=== PATIENT | male | born 1955 | race Caucasian/White ===

== ENCOUNTER 2016-10-19 01:27 | Observation (INO) | payer MEDICAID ==
[~2016-10-19] VITALS: Ht 182.9 cm; Wt 112.5 kg
[2016-10-19 03:31] LABS: BASOPHILS 0.6 % (0.0-2.0); EOSINOPHILS 2.2 % (0-7); HEMATOCRIT 44.5 % (42.0-54.0); HEMOGLOBIN 15.6 g/dL (13.5-17.5); IMMATURE GRANULOCYTES 0.5 % (0-5); LYMPHOCYTES 18.9 % (15-50); MCH 30.1 pg (26.0-34.0); MCHC 35.1 g/dL (31.0-37.0); MCV 85.7 fL (80.0-100.0); MEAN PLATELET VOLUME 11.6 fL (7.4-10.4); MONOCYTES 5.5 % (2-11); NEUTROPHILS 72.3 % (40-80); PLATELET COUNT 160 10x3/uL (130-400); RBC 5.19 10x6/uL (4.20-6.10); RDW 13.7 % (11.5-14.5); WBC 10.9 10x3/uL (4.8-10.8)
[2016-10-19 03:42] LABS: CALC OSMOLALITY 289 mosm/kg (275-300); CALCIUM 8.9 mg/dL (8.5-10.1); CARBON DIOXIDE 28.6 mmol/L (21.0-32.0); CHLORIDE - SERUM 106 mmol/L (98-107); CREATININE - SERUM 0.6 mg/dL (0.6-1.3); GLUCOSE 145 mg/dL (74-106); POTASSIUM - SERUM 3.5 mmol/L (3.5-5.1); SODIUM 144 mmol/L (136-145); UREA NITROGEN 12 mg/dL (7-18); eGFR NON AFRICAN AMERICAN > 90 mL/min (90-120)
[2016-10-19 05:09] VITALS: BP 147/82; BMI 33.7
--- NOTE | 2016-10-19 05:23 | NUR ---
RECIEVED PT FROM ER VIA WHEELCHAIR, ACCOMPANIED BY FAMILY, ASSESSMENT COMPLETED, NO ACUTE DISTRESS NOTED, OXYGEN PLACED PER ORDERS @ 2L, HISTORY AND MED REC DONE, ORIENTED TO ROOM AND CALL LIGHT, DENIES NEEDS AT THIS TIME, CL IN REACH, WILL MONITOR
[2016-10-19] MEDS ORDERED: TENORMIN25 MG PO (05:42)
[2016-10-19] MEDS ORDERED: ZESTRIL40 MG PO (05:45)
[2016-10-19] MEDS ORDERED: PROVENTIL HFA6.7 GM INH (05:45)
[2016-10-19] MEDS ORDERED: INSPIRATION ELI1 PK1 INH (05:46)
[2016-10-19] MEDS ORDERED: HYDROCODONE-APA1 TAB PO (05:47)
[2016-10-19] MEDS ORDERED: LANTUS INSULIN10 ML SC (05:47)
[2016-10-19] MEDS ORDERED: HUMULIN R100 U/ML SC (05:48)
[2016-10-19] MEDS ORDERED: BAYER CHEWABLE81 MG PO (05:49)
[2016-10-19] MEDS ORDERED: B/P MED (05:49)
[2016-10-19] MEDS ORDERED: SYMBICORT 16010.2 GM INH (05:50)
[2016-10-19] MEDS ORDERED: IBUPROFEN200 MG PO (05:51)
--- NOTE | 2016-10-19 07:20 | NUR ---
PT REC'D FROM [facility]. RESTING IN BED WITH EYES CLOSED. NO SIGNS OF DISTRESS. RESP EVEN AND UNLABORED. BED LOW, CALL LIGHT IN REACH, DENIES NEEDS. CPOC.
[2016-10-19 08:12] VITALS: BP 125/73
--- NOTE | 2016-10-19 09:15 | NUR ---
PATIENT IN BED, RESTING WITH EYES CLOSED. PATIENT AROUSED EASILY. PATIENT DENIES NEEDS AT THIS TIME. PUT BED INTO LOWEST POSITION, CALL LIGHT IN REACH. BED RAILS UP X'S 2. FAMILY MEMBER ASLEEP IN RECLINER.
--- NOTE | 2016-10-19 09:24 | NUR ---
PT RESTING IN BED WITH IN ROOM. AAOX4. REGULAR HEART RATE AND RHYTHM. BILAT WHEEZES TO ALL LOBES OF LUNGS. BOWEL SOUNDS ACTIVE X4 QUADRANTS. RATING CURRENT PAIN IN LOWER BACK 5/10. STATES THAT IS A CHRONIC THING FOR HIM. PIV TO L HAND FLUSHED WITHOUT DIFFICULTY OR PAIN. SWAB CAP IN USE. BED LOW, CALL LIGHT IN REACH, DENIES NEEDS. CPOC.
--- NOTE | 2016-10-19 10:41 | NUR ---
SPOKE WITH DR. MAZARIEGOS ABOUT PT HISTORY AND ORDERS BEING ENTERED. DR. MAZARIEGOS STATED, "GET A CTA IF D-DIMER IS ELEVATED PER PE PROTOCOL."
[2016-10-19 10:46] LABS: HEMOGLOBIN A1C 9.2 % (4.8-6.0)
[2016-10-19 10:57] LABS: CKMB 1.7 U/L (0.0-3.6)
[2016-10-19 10:58] LABS: TROPONIN-I < 0.017 ng/mL (0.000-0.060)
--- NOTE | 2016-10-19 12:00 | NUR ---
CURRENT FSBS 432. 20 UNITS OF INSULIN ADMINISTERED PER SS. DR. MAZARIEGOS AWARE OF PT'S HISTORY WITH CONTROLLING HIS SUGAR.
--- NOTE | 2016-10-19 12:01 | HP ---
PATIENT: FABI CONWAY MEDICAL RECORD: [id number] ACCOUNT: [id number] LOCATION:D.[facility] : 54 ADMISSION DATE: 10/19/16 HISTORY AND PHYSICAL EXAMINATION Admission History and Physical HISTORY OF PRESENT ILLNESS: A 61-year-old male who presents with a complaint of progressively worsening shortness of breath over the past 3 days. PAST MEDICAL HISTORY: Significant for COPD, also a history of heart disease, hypertension, and diabetes. SOCIAL HISTORY: Former smoker. CURRENT MEDICATIONS: Listed as atenolol, albuterol inhaler, lisinopril 40 mg daily, home nebulizer, Lantus 70 units subQ b.i.d., regular insulin. ALLERGIES: LISTED TRAMADOL. PRIMARY CARE PHYSICIAN: ____. He does see a bed spring maker, Dr. Allen. REVIEW OF SYSTEMS: GENERAL: No acute change in weight or appetite. HEENT: No cephalgia, visual changes, tinnitus, epistaxis or dysphagia. CARDIOVASCULAR: Denies chest pain, denies palpitations. PULMONARY: Denies hemoptysis, denies night sweats. GASTROINTESTINAL: Denies hematemesis, hematochezia or melena. PULMONARY: Does admit worsening wheezing over the past 3 days. GENITOURINARY: Denies dysuria, denies change in frequency. MUSCULOSKELETAL: No acute changes. ENDOCRINE: Insulin-dependent diabetes, denies any acute changes. PHYSICAL EXAMINATION: VITAL SIGNS: Temp 97.9, blood pressure is 125/73, heart rate 81, respirations 20, O2 sats 94% on 2 liters via nasal cannula. HEENT: Normocephalic, atraumatic. Eyes: Pupils are equally round and reactive. Ears: Canals patent. TMs are intact. Nose: Nares patent without drainage. Throat: No erythema, no exudates. NECK: Supple. No lymphadenopathy. HEART: Regular rate and rhythm. No S3, S4, no rub. LUNGS: Bilateral expiratory wheeze, nonlabored with supplemental O2. ABDOMEN: Soft, obese, nontender. Bowel sounds all 4 quadrants. EXTREMITIES: Present times 4. NEUROLOGIC: Cranial nerves II through XII intact. No focal deficits. SKIN: Warm, dry. No rash. DIAGNOSTIC DATA: Chest x-ray, no acute cardiopulmonary disease. LABORATORY DATA: CBC: White count 10.9, hemoglobin 15.6, hematocrit 44.5, platelets 160. Chemistry shows a sodium of 144, potassium 3.5, chloride 106, bicarbonate 28.6, BUN 12, creatinine 0.6, glucose 145. Blood cultures pending. ASSESSMENT AND PLAN: Exacerbation of chronic obstructive pulmonary disease. The patient is admitted under unassigned medicine. We will obtain D-dimer. HISTORY AND PHYSICAL [id number] FABI CONWAY CTA chest PE Protocol if D-dimer elevated. We will also obtain one set of cardiac enzymes with his cardiac history. Continue blood pressure medicines as indicated. Resume insulin as indicated presently on sliding scale, we will monitor. ADA diet, IV Solu-Medrol, DuoNebs supportive care. TRANSINT:[id number] Voice Confirmation ID: [id number] DOCUMENT ID: [id number] THI MAZARIEGOS DO at 1201 CC: [id number] DICTATION DATE: 10/19/16 1012 PROJECT MANAGEMENT CONSULTANT: 10/19/16 1101 ADM IN [facility] [address] [place] [address]
[2016-10-19 12:03] VITALS: BP 125/71
--- NOTE | 2016-10-19 16:45 | NUR ---
DR. MAZARIEGOS PAGED REGARDING FSBS OF 439. 20 UNITS OF LANTUS ADMINISTERED. AWAITING CALL BACK.
[2016-10-19 16:48] VITALS: BP 131/64
--- NOTE | 2016-10-19 17:00 | NUR ---
ORDERS REC'D. ONE TIME DOSE OF 10 UNITS OF LANTUS ADMINISTERED. WILL REASSESS.
--- NOTE | 2016-10-19 20:00 | NUR ---
RECIEVED PT LYING IN BED RESTING WITH EYES CLOSED, EASILY AROUSED, ASSESSMENT COMPLETED, NO ACUTE DISTRESS NOTED, WHEEZES NOTED, DENIES NEEDS, AT BESIDE, FALL PRECAUTIONS IN PLACE, CL IN REACH
[2016-10-19 21:00] VITALS: BP 133/68
--- NOTE | 2016-10-19 21:20 | NUR ---
BS 510, 20 UNITS REGULAR INSULING GIVEN PER SLIDING SCALE ALONG WITH 70 UNITS OF LANTUS, JERAD WELL, ASYPMTOMATIC, DENIES NEEDS, WILL PAGE TO REPORT, CL IN REACH
--- NOTE | 2016-10-19 22:00 | NUR ---
ORDERS RECIEVED FROM DR MAZARIEGOS TO CHANGE FROM INTERMEDIATE TO HIGH RESISTANCE SCALE, ALSO INFORMED MD OF PT'S REQUEST FOR PAIN MEDICATION, ORDERS FOR NORCO 5 Q8 PRN
--- NOTE | 2016-10-19 22:32 | NUR ---
PRN NORCO GIVEN PER MAR FOR C/O BACK PAIN 05/19, JERAD WELL, CL IN REACH
--- NOTE | 2016-10-19 23:16 | NUR ---
RESTING WITH EYES CLOSED, RESP WITH EASE, NO DISTRESS NOTED, AT BEDSIDE, CL IN REACH
[2016-10-20] VITALS: BP 127/57
--- NOTE | 2016-10-20 03:30 | NUR ---
RESTING WITH EYES CLOSED, SNORING RESP, NO DISTRESS NOTED, FALL PRECAUTIONS IN PLACE, IN ROOM, CL IN REACH
[2016-10-20 04:00] VITALS: BP 127/68
--- NOTE | 2016-10-20 04:44 | NUR ---
SOLUMEDROL GIVEN PER MAR, JERAD WELL, CL IN REACH
[2016-10-20 05:37] LABS: CALCIUM 8.9 mg/dL (8.5-10.1); CARBON DIOXIDE 26.4 mmol/L (21.0-32.0); CHLORIDE - SERUM 104 mmol/L (98-107); POTASSIUM - SERUM 3.4 mmol/L (3.5-5.1); SODIUM 140 mmol/L (136-145); eGFR NON AFRICAN AMERICAN 80 mL/min (90-120)
[2016-10-20 05:43] LABS: CALC OSMOLALITY 298 mosm/kg (275-300); GLUCOSE 422 mg/dL (74-106); UREA NITROGEN 18 mg/dL (7-18)
--- NOTE | 2016-10-20 06:06 | NUR ---
20 UNITS REGULAR INSULIN GIVEN PER SLIDING SCALE FOR BS OF 422 ALONG WITH 70 UNITS OF MD VARINDER AWARE OF ELEVATED BS WITH NEW ORDERS RECIEVED LAST PM, JERAD WELL, NO DISTRESS NOTED, DENIES NEEDS, CL IN REACH
--- NOTE | 2016-10-20 07:46 | NUR ---
PT ASSESSMENT COMPLETE AWAKE AND ALERT ORIENTED X 3 LUNGS WITH DIMINISHED SOUNDS NOTED TO BILATERAL BASES WITH OCASSIONAL INSPIRATORY WHEEZES NOTED TO LEFT SIDE CLEARS WITH COUGH. HRRR NO ACUTE DISTRESS NOTED. PT HAS O2 PER ORDER HOWEVER DOESNT HAVE IT IN NOSE INSTEAD HAS IT IN MOUTH. BSA X 4 QUADS ABDOMEN IS FIRM AND NON TENDER WILL MONITOR. SPOUSE REMAINS AT BEDSIDE.
[2016-10-20 08:37] VITALS: BP 121/67
--- NOTE | 2016-10-20 08:55 | NUR ---
PATIENT ALERT IN MID GUTIERREZ POSITION. RESPIRATIONS EVEN AND UNLABORED. CEDRICK, NURSE AID AT BEDSIDE.
--- NOTE | 2016-10-20 09:16 | NUR ---
PT AWAKE AND ALERT NO DISTRES NOTED CALL LIGHT IN REACH SIDE RAILS UP X 2 VOICES ALL NEEDS TO STAFF
--- NOTE | 2016-10-20 11:40 | NUR ---
FSBS 381 TREATED PER ORDER WITH 24 UNITS INSULIN PER SLIDING SCALE. AWAKE AND ALERT NO DISTRESS NOTED CALL LIGHT IN REACH SIDE RAILS UP X 2
[2016-10-20 12:30] VITALS: BP 127/71
[2016-10-20 12:34] VITALS: Ht 182.9 cm; Wt 112.5 kg
--- NOTE | 2016-10-20 13:42 | NUR ---
PT WITH NO ACUTE DISTRESS NOTED RESTING QUIETLY WITH NO COMPLAINTS VOICED. CALL LIGHT IN REACH SIDE RAILS UP X2
--- NOTE | 2016-10-20 16:07 | NUR ---
PT AWAKE AND ALERT ORINETD X 3 SPOUSE AT SIDE NO DISTRESS NOTED VOICES ALL NEEDS TO STAFF. CALL LIGHT IN REACH SIDE RAILS UP X 2
[2016-10-20 16:53] VITALS: BP 140/73
--- NOTE | 2016-10-20 19:25 | NUR ---
RECIEVED PT LYING IN BED WATCHING TV, ASSESSMENT COMPLETED, NO DISTRESS NOTED, FALL PRECAUTIONS IN PLACE, IN ROOM, CL IN REACH
[2016-10-20 20:00] VITALS: BP 125/72
--- NOTE | 2016-10-20 20:56 | NUR ---
24 UNITS REGULAR INSULIN GIVEN PER SLIDING SCALE FOR LEVEL OF 385 ALONG WITH SCHEDULED LANTUS, JERAD WELL, DENIES NEEDS, CL IN REACH
--- NOTE | 2016-10-20 21:30 | NUR ---
LYING IN BED WATCHING TV, IN ROOM, DENIES NEEDS, CL IN REACH
--- NOTE | 2016-10-20 23:02 | NUR ---
RESTING WITH EYES CLOSED, RESP WITH EASE, NO DISTRESS NOTED, SR'S UP, CL IN REACH
--- NOTE | 2016-10-21 00:59 | NUR ---
PRN NORCO GIVEN FOR C/O HEAD/BACK PAIN 03/19, JERAD WELL, CL IN REACH
[2016-10-21 04:00] VITALS: BP 122/63
[2016-10-21 05:33] LABS: CALCIUM 8.4 mg/dL (8.5-10.1); CHLORIDE - SERUM 106 mmol/L (98-107); POTASSIUM - SERUM 3.4 mmol/L (3.5-5.1); SODIUM 141 mmol/L (136-145); UREA NITROGEN 21 mg/dL (7-18)
[2016-10-21 05:38] LABS: CALC OSMOLALITY 293 mosm/kg (275-300); CREATININE - SERUM 0.7 mg/dL (0.6-1.3); GLUCOSE 277 mg/dL (74-106); eGFR NON AFRICAN AMERICAN > 90 mL/min (90-120)
--- NOTE | 2016-10-21 06:28 | NUR ---
16 UNITS INSULIN GIVEN PER SLIDING SCALE FOR LEVEL OF 277, JERAD WELL, DENIES NEEDS, CL IN REACH
--- NOTE | 2016-10-21 07:41 | NUR ---
PT ASSESSMENT COMPLETE AWAKE AND ALERT SITTING UP ON SIDE OF BED NO DISTRESS NTOED VOICES ALL NEEDS TO STAFF VS WNL. SPOUSE AT BEDSIDE. LUNGS WITH DIMINISHED POSTERRIOR SOUNDS IN BASES. HRRR. MOVES AL EXTREMITIES TO COMMAND. CALL LIGHT IN REACH.
[2016-10-21] MEDS ORDERED: ZPAK PO (07:50)
[2016-10-21] MEDS ORDERED: PREDNISONE10 MG PO (07:52)
--- NOTE | 2016-10-21 08:00 | NUR ---
PATIENT ALERT IN BED WITH FAMILY PRESENT. NO SIGNS OF DISTRESS NOTED. SIDE RAILS UP X2. BED IN LOW POSITION. CALL LIGHT IN REACH.
[2016-10-21 08:35] VITALS: BP 151/76
--- NOTE | 2016-10-21 10:38 | NUR ---
PIV D/CD INTACT. DISCHARGE INSTRUCTIONS GIVEN EXPRESSED UNDERSTANDING. PT ESCORTED VIA WHEELCHAIR AT THIS TIME PER VOULENTEER STAFF TO PRIVATE VEHICLE FOR DISCHARGE TO HOME WITH FAMILY AT SIDE.
== END 2016-10-21 10:39 | disposition home or self-care (01) ==
LOC: D.ER 01:27 → D.MS 04:34 → OBSVTIME 04:34 → D.MS 10-21 10:39
PROVIDERS: Emergency Medicine; ADMIT Family Medicine
DX: J44.1 Chronic obstructive pulmonary disease with (acute) exacerbation (principal); E11.65 Type 2 diabetes mellitus with hyperglycemia; Z79.4 Long term (current) use of insulin; I25.10 Atherosclerotic heart disease of native coronary artery without angina pectoris; I10 Essential (primary) hypertension; Z87.891 Personal history of nicotine dependence

== ENCOUNTER 2017-05-22 00:12 | Inpatient (IN) | payer MEDICAID ==
[~2017-05-22 00:12] MED LIST: B/P MED; BAYER CHEWABLE81 MG PO; HUMULIN R100 U/ML SC; HYDROCODONE-APA1 TAB PO; IBUPROFEN200 MG PO; INSPIRATION ELI1 PK1 INH; LANTUS INSULIN10 ML SC; PREDNISONE10 MG PO; PROVENTIL HFA6.7 GM INH; SYMBICORT 16010.2 GM INH; TENORMIN25 MG PO; ZESTRIL40 MG PO; ZPAK PO
[2017-05-22 00:54] LABS: BASOPHILS 0.2 % (0-2); EOSINOPHILS 0.7 % (0-7); HEMATOCRIT 43.5 % (42.0-54.0); HEMOGLOBIN 15.2 g/dL (13.5-17.5); IMMATURE GRANULOCYTES 0.5 % (0-5); MCH 30.2 pg (26.0-34.0); MCHC 34.9 g/dL (31.0-37.0); MCV 86.3 fL (80.0-100.0); MEAN PLATELET VOLUME 11.9 fL (7.4-10.4); MONOCYTES 4.4 % (2-11); NEUTROPHILS 79.2 % (40-80); PLATELET COUNT 146 10x3/uL (130-400); RBC 5.04 10x6/uL (4.20-6.10); RDW 13.6 % (11.5-14.5)
[2017-05-22 01:19] LABS: ALBUMIN 3.2 g/dL (3.4-5.0); ALKALINE PHOSPHATASE 74 U/L (46-116); ALT (SGPT) 59 U/L (10-68); CALCIUM 8.6 mg/dL (8.5-10.1); CARBON DIOXIDE 27.3 mmol/L (21.0-32.0); CHLORIDE - SERUM 102 mmol/L (98-107); POTASSIUM - SERUM 4.1 mmol/L (3.5-5.1); PRO BNP 135 pg/mL (0-125); PROTEIN - SERUM 6.4 g/dL (6.4-8.2); SODIUM 138 mmol/L (136-145); TROPONIN-I < 0.017 ng/mL (0.000-0.060); UREA NITROGEN 15 mg/dL (7-18); eGFR NON AFRICAN AMERICAN 80 mL/min (90-120)
[2017-05-22 01:23] LABS: CALC OSMOLALITY 308 mosm/kg (275-300); GLUCOSE 674 mg/dL (74-106)
[2017-05-22 01:52] LABS: HEMOGLOBIN A1C 11.4 % (4.8-6.0)
[2017-05-22] MEDS ORDERED: NEURONTIN600 MG PO (03:10)
[2017-05-22] MEDS ORDERED: HYDROCODONE-IB1 EAC3 PO (03:12)
[2017-05-22 04:00] VITALS: BP 151/80
[2017-05-22 04:08] VITALS: BP 108/66; BMI 31.9
[2017-05-22 07:50] VITALS: BP 128/71
--- NOTE | 2017-05-22 08:53 | NUR ---
COSIGNED FOR INSULIN 20 UNITS FOR BS 712. PATIENT HAS NO PROBLEMS OR COMPLAINTS AT THIS TIME. IV INTACT. FAMILY AT BEDSIDE. CALL LIGHT WITHIN REACH.
[2017-05-22 12:03] VITALS: BP 135/82
[2017-05-22 13:37] VITALS: BMI 31.8
[2017-05-22 16:16] VITALS: BP 119/68
[2017-05-22 16:21] LABS: APPEARANCE CLEAR (CLEAR); BILIRUBIN NEGATIVE (NEGATIVE); COLOR STRAW (YELLOW); GLUCOSE 1000 mg/dL (NEGATIVE); KETONE NEGATIVE (NEGATIVE); NITRITE NEGATIVE (NEGATIVE); PROTEIN NEGATIVE (NEGATIVE); UROBILINOGEN NORMAL (NORMAL)
[2017-05-22 16:23] LABS: RED CELLS - URINE RARE /hpf (0-5)
[2017-05-22 20:00] VITALS: BP 122/67
--- NOTE | 2017-05-22 23:49 | NUR ---
ASSESSED, PT WAS RESTING QUIET IN BED STILL WEARING HIS JEANS WITH SIGNIFICANT OTHER AT THE BED SIDE. THEY WERE BOTH WATCHING TV AND WHEN HE WAS QUESTIONED HE STATED THAT HE WAS DOING OK AND DID NOT NEED ANYTHING. THE BED IS LOW, RAILS UP X'S 2 WITH THE CALL LIGHT WAS AT HAND.
[2017-05-23] VITALS (7 sets, daily range): BP systolic 113–139; BP diastolic 61–75
[2017-05-23 06:31] LABS: BASOPHILS 0.1 % (0-2); EOSINOPHILS 0.1 % (0-7); HEMATOCRIT 41.2 % (42.0-54.0); HEMOGLOBIN 14.3 g/dL (13.5-17.5); IMMATURE GRANULOCYTES 0.5 % (0-5); LYMPHOCYTES 5.3 % (15-50); MCH 29.9 pg (26.0-34.0); MCHC 34.7 g/dL (31.0-37.0); MCV 86.2 fL (80.0-100.0); MEAN PLATELET VOLUME 11.3 fL (7.4-10.4); MONOCYTES 3.1 % (2-11); NEUTROPHILS 90.9 % (40-80); PLATELET COUNT 151 10x3/uL (130-400); RBC 4.78 10x6/uL (4.20-6.10); RDW 13.3 % (11.5-14.5)
[2017-05-23 06:32] LABS: WBC 15.7 10x3/uL (4.8-10.8)
[2017-05-23 07:01] LABS: ALKALINE PHOSPHATASE 66 U/L (46-116); ALT (SGPT) 50 U/L (10-68); CALC OSMOLALITY 291 mosm/kg (275-300); CARBON DIOXIDE 24.7 mmol/L (21.0-32.0); CHLORIDE - SERUM 105 mmol/L (98-107); CREATININE - SERUM 0.9 mg/dL (0.6-1.3); GLUCOSE 322 mg/dL (74-106); PHOSPHOROUS 4.2 mg/dL (2.5-4.9); POTASSIUM - SERUM 3.8 mmol/L (3.5-5.1); PROTEIN - SERUM 5.9 g/dL (6.4-8.2); SODIUM 139 mmol/L (136-145); UREA NITROGEN 17 mg/dL (7-18); eGFR NON AFRICAN AMERICAN > 90 mL/min (90-120)
--- NOTE | 2017-05-23 07:45 | NUR ---
A&O, DENIES NEEDS, CALL LIGHT IN REACH, BED LOWEST POSITION, WILL CONTINUE TO MONITOR
--- NOTE | 2017-05-23 11:30 | NUR ---
BLOOD GLUCOSE 425, CLAUDINE KIM HSIEH NOTIFIED, SLIDING SCALE AND LANTUS ADJUSTED
--- NOTE | 2017-05-23 12:10 | NUR ---
PATIENT IN LOW GUTIERREZ POSITION. NO SIGNS OF DISTRESS NOTED. FAMILY AT BEDSIDE. SIDE RAILS UP X2. BED IN LOW POSITION. CALL LIGHT IN REACH.
--- NOTE | 2017-05-23 18:00 | NUR ---
PATIENT RESTING IN BED AND DENIES NEEDS AT THIS TIME. BED IN LOWEST POSITION AND CALL LIGHT WITHIN REACH. ENCOURAGED THE PATIENT TO CALL IF HE HAS NEEDS.
--- NOTE | 2017-05-23 19:15 | NUR ---
RECEIVED CARE FROM DAY NURSE. PT IN BED WITH SPOUSE AT SIDE. REPORTS NO NEEDS AT THIS TIME. CALL LIGHT AT SIDE.
--- NOTE | 2017-05-23 19:53 | NUR ---
IV IN RIGHT FA BLOODY AND RED. DC'D WITH TIP INTACT. RESITED TO LEFT FA. 22 GAUGE X1 STICK WITH GOOD BLOOD RETURN NOTED.
--- NOTE | 2017-05-23 23:57 | NUR ---
PT UP ON SIDE OF BED WITH SPOUSE AT SIDE. REPORTS NO NEEDS AT THIS TIME. CLAL LIGHT AT SIDE. ABX INFUSING PER ORDER. IV PATENT TO LEFT FA.
--- NOTE | 2017-05-24 03:38 | NUR ---
ASSESSED, PT IS AWAKE WATCHING TV WITH HIS AT THE BEDSIDE. HE DENIES ANY NEEDS AND HIS RESPIRATIONS ARE EASY. THE BED IS LOW, RAILS UP X'S 2 WITH THE CALL LIGHT AT HAND.
[2017-05-24 04:02] VITALS: BP 121/67
[2017-05-24 05:55] LABS: BASOPHILS 0 % (0-2); EOSINOPHILS 0.1 % (0-7); HEMATOCRIT 40.9 % (42.0-54.0); HEMOGLOBIN 14.2 g/dL (13.5-17.5); IMMATURE GRANULOCYTES 0.7 % (0-5); LYMPHOCYTES 6.5 % (15-50); MCH 30.1 pg (26.0-34.0); MCHC 34.7 g/dL (31.0-37.0); MCV 86.8 fL (80.0-100.0); MEAN PLATELET VOLUME 12.2 fL (7.4-10.4); MONOCYTES 2.7 % (2-11); PLATELET COUNT 157 10x3/uL (130-400); RBC 4.71 10x6/uL (4.20-6.10); RDW 13.4 % (11.5-14.5); WBC 13.7 10x3/uL (4.8-10.8)
[2017-05-24 05:58] LABS: ALBUMIN 2.8 g/dL (3.4-5.0); ALKALINE PHOSPHATASE 65 U/L (46-116); ALT (SGPT) 41 U/L (10-68); BILIRUBIN - TOTAL 0.21 mg/dL (0.2-1.3); CALC OSMOLALITY 283 mosm/kg (275-300); CARBON DIOXIDE 26.2 mmol/L (21.0-32.0); CHLORIDE - SERUM 103 mmol/L (98-107); CREATININE - SERUM 0.7 mg/dL (0.6-1.3); POTASSIUM - SERUM 3.6 mmol/L (3.5-5.1); PROTEIN - SERUM 5.9 g/dL (6.4-8.2); SODIUM 138 mmol/L (136-145); UREA NITROGEN 15 mg/dL (7-18); eGFR NON AFRICAN AMERICAN > 90 mL/min (90-120)
[2017-05-24 06:01] LABS: GLUCOSE 229 mg/dL (74-106)
--- NOTE | 2017-05-24 07:45 | NUR ---
A&O, DENIES NEEDS, NO DISTRESS NOTED, CALL LIGHT IN REACH, BED LOWEST POSITION, WILL CONTINUE TO MONITOR
[2017-05-24 08:38] VITALS: BP 130/71
[2017-05-24 12:08] VITALS: BP 131/76
[2017-05-24 16:16] VITALS: BP 130/74
--- NOTE | 2017-05-24 17:15 | NUR ---
RECEIVED CARE FROM DAY NURSE. PT ON SIDE OF BED EATING MEAL. REPORTS NO NEEDS AT THIS TIME. CALL LIGHT AT SIDE.
[2017-05-24 19:55] VITALS: BP 127/73
--- NOTE | 2017-05-24 20:15 | NUR ---
IV IN LEFT FA BLEEDING AND RED. DC'D WITH TIP INTACT. RESITED TO L HAND. 22 GAUGE X1 STICK WOTH GOOD RETURN NOTED.
[2017-05-24 23:47] VITALS: BP 128/74
--- NOTE | 2017-05-25 00:14 | NUR ---
PATIENT RESTING IN BED WITH GUEST AT BEDSIDE. ADDED VOLUME TO PT'S IV FLUIDS. PATIENT DENIES NEEDS AT THIS TIME. BED IN LOWEST POSITION AND CALL LIGHT WITHIN REACH. ENCOURAGED THE PATIENT TO CALL IF HE HAS NEEDS.
--- NOTE | 2017-05-25 02:56 | NUR ---
UPDRAFT GOING. SOLU-MEDROL GIVEN PER ORDER. PT REPORTS NO NEEDS. CALL LIGHT AT SIDE. SPOUSE AT SIDE.
[2017-05-25 04:01] VITALS: BP 116/70
[2017-05-25 05:54] LABS: BASOPHILS 0.1 % (0-2); EOSINOPHILS 0.1 % (0-7); HEMATOCRIT 43.3 % (42.0-54.0); HEMOGLOBIN 14.8 g/dL (13.5-17.5); IMMATURE GRANULOCYTES 1.1 % (0-5); LYMPHOCYTES 6.7 % (15-50); MCH 29.7 pg (26.0-34.0); MCHC 34.2 g/dL (31.0-37.0); MCV 86.9 fL (80.0-100.0); MEAN PLATELET VOLUME 11.8 fL (7.4-10.4); MONOCYTES 3.2 % (2-11); NEUTROPHILS 88.8 % (40-80); PLATELET COUNT 156 10x3/uL (130-400); RBC 4.98 10x6/uL (4.20-6.10); RDW 13.6 % (11.5-14.5); WBC 12.4 10x3/uL (4.8-10.8)
[2017-05-25 06:21] LABS: ALKALINE PHOSPHATASE 62 U/L (46-116); ALT (SGPT) 42 U/L (10-68); CALC OSMOLALITY 286 mosm/kg (275-300); CALCIUM 8.8 mg/dL (8.5-10.1); CARBON DIOXIDE 25.4 mmol/L (21.0-32.0); CHLORIDE - SERUM 103 mmol/L (98-107); CREATININE - SERUM 0.8 mg/dL (0.6-1.3); GLUCOSE 205 mg/dL (74-106); MAGNESIUM - SERUM 2.1 mg/dL (1.8-2.4); PHOSPHOROUS 4.5 mg/dL (2.5-4.9); POTASSIUM - SERUM 3.9 mmol/L (3.5-5.1); PROTEIN - SERUM 5.9 g/dL (6.4-8.2); SODIUM 139 mmol/L (136-145); eGFR NON AFRICAN AMERICAN > 90 mL/min (90-120)
[2017-05-25 06:22] LABS: UREA NITROGEN 20 mg/dL (7-18)
[2017-05-25 08:44] VITALS: BP 128/74
--- NOTE | 2017-05-25 11:31 | NUR ---
PT REFUSES TO COMPLY WITH THE UTILIZATION OF THE ACCAPELLA DEVICE
[2017-05-25 12:40] VITALS: BP 112/54
--- NOTE | 2017-05-25 14:23 | NUR ---
PT HERE FOR HYPOGLYCEMIA AND COPD FOR THIS VISIT. IV TO LEFT HAND PATENT AND INTACT AT THIS TIME SRX2 BED AT LOWEST SETTING CALL LIGHT WITHIN REACH WILL CONTINUE TO MONITOR
--- NOTE | 2017-05-25 15:30 | NUR ---
Patient Name: FABI CONWAY Admission Status: ER Accout number: [id number] Admission Date: 05-22-2017 : 1955 Admission Diagnosis:CHRONIC OBSTRUCTIVE PULMONARY DISEASE W (ACUTE) EXACERB Attending: JOLYNN BERRY Current LOS: 3 Anticipated DC Date: 05-21-2017 Planned Disposition: Home Primary Insurance: [place]ICAID [place] Discharge Planning Comments: CM MET WITH PATIENT REGARDING D/C NEEDS AND PLANS. PATIENT STATED HE LIVES ALONE AND WILL DRIVE HIMSELF HOME AT DISCHARGE. PATIENT HAS 3 STEPS W/RAILS TO ENTER HOME AND NO STAIRS INSIDE. PATIENTS PCP IS DR. VICK IN [place] AND PHARMACY IS [facility]. PATIENT HAS A WALKER, WHEELCHAIR, CANE, OXYMIZER, NEBULIZER, GLUCOMETER, AND SHOWER CHAIR AT HOME. PATIENT IS REFUSING HOME HEALTH. CM WILL CONTINUE TO FOLLOW PATIENT WITH D/C NEEDS AND PLANS. PCP DR. VICK [facility]- [phone] JOSS FERNANDES (FRIEND) [phone] [place] Floor: Tameka Lucero Is the patient Alert and Oriented? Yes 0 * How many steps to enter\exit or inside your home? 3 W/RAILS 0 * PCP DR. VICK IN [place] 0 * Pharmacy [facility] 0 * Preadmission Environment Home Alone 0 * ADLs Independent 0 * Equipment Cane Glucometer Nebulizer Shower Chair Walker Wheelchair 0 * List name and contact numbers for known caregivers / representatives who currently or will assist patient after discharge: JOSS FERNANDES (FRIEND) [phone] 0 * Community resources currently utilized None 0 * Additional services required to return to the preadmission environment? Yes 0 * Can the patient safely return to the preadmission environment? Yes 0 * Has this patient been hospitalized within the prior 30 days at any hospital? No 0 Grand Total: 0
--- NOTE | 2017-05-25 19:35 | NUR ---
RECIEVED SHIFT REPORT. PT IS LYING IN BED. ALERT AND ORIENTED AND ABLE TO VERBALIZE NEEDS. IV IS PATENT AND SALINE LOC AT THIS TIME. O2 @ 2 PER NASAL CANNULA. PT IS AMBULATORY BUT WAS INSTRUCTED TO CALL FOR ANY ASSISTANCE NEEDED. PT STATES PAIN IS 5/10. NO NEEDS ARE VERBALIZED AT THIS TIME. WILL CONTINUE TO MONITOR. SIDE RAILS ARE UP X 2. BED IS IN LOWEST POSITION. CALL LIGHT IS WITHIN REACH.
[2017-05-25 20:00] VITALS: BP 157/76
--- NOTE | 2017-05-25 20:19 | NUR ---
SHIFT ASSESSMENT COMPLETED. NIGHT MEDS GIVEN WITH NO PROBLEMS. PT RECIEVED 24 UNITS INSULIN PER SLIDING SCALE FOR 351. PT C/O PAIN 12/17. ADMINISTERED PRESCRIBED PRN VICOPROFEN PER ORDER. DENIES FURTHER NEEDS. WILL MONITOR. SIDE RAILS X 2. BED LOW. CALL LIGHT IN REACH.
[2017-05-26] VITALS: BP 144/79
--- NOTE | 2017-05-26 03:27 | NUR ---
PT IV TO LEFT HAND LEAKING WITH BLOOD AROUND SITE. D/C'D WITH CATHETER TIP INTACT. NEW IV SITED TO RIGHT HAND X 1 ATTEMPT. 22G. GOOD BLOOD RETURN. FLUSHESE W/O DIFFICULTY. SALINE LOC PER ORDER. PT TOLERATED WELL. NO NEEDS VOICED. WILL MONITOR. SIDE RAILS X 2. BED LOW. CALL LIGHT IN REACH.
[2017-05-26 04:00] VITALS: BP 119/72
[2017-05-26 05:20] LABS: BASOPHILS 0.1 % (0-2); EOSINOPHILS 0.1 % (0-7); HEMATOCRIT 42.7 % (42.0-54.0); HEMOGLOBIN 14.7 g/dL (13.5-17.5); IMMATURE GRANULOCYTES 1.6 % (0-5); LYMPHOCYTES 7.9 % (15-50); MCH 30.1 pg (26.0-34.0); MCHC 34.4 g/dL (31.0-37.0); MCV 87.3 fL (80.0-100.0); MEAN PLATELET VOLUME 12.1 fL (7.4-10.4); MONOCYTES 3.2 % (2-11); NEUTROPHILS 87.1 % (40-80); PLATELET COUNT 141 10x3/uL (130-400); RBC 4.89 10x6/uL (4.20-6.10); RDW 13.6 % (11.5-14.5); WBC 12.1 10x3/uL (4.8-10.8)
[2017-05-26 05:39] LABS: ALBUMIN 2.7 g/dL (3.4-5.0); ALKALINE PHOSPHATASE 61 U/L (46-116); ALT (SGPT) 46 U/L (10-68); CALCIUM 8.7 mg/dL (8.5-10.1); CARBON DIOXIDE 26.1 mmol/L (21.0-32.0); CHLORIDE - SERUM 100 mmol/L (98-107); CREATININE - SERUM 0.8 mg/dL (0.6-1.3); POTASSIUM - SERUM 4.3 mmol/L (3.5-5.1); PROTEIN - SERUM 5.4 g/dL (6.4-8.2); SODIUM 136 mmol/L (136-145); eGFR NON AFRICAN AMERICAN > 90 mL/min (90-120)
[2017-05-26 05:48] LABS: CALC OSMOLALITY 286 mosm/kg (275-300); GLUCOSE 274 mg/dL (74-106); UREA NITROGEN 27 mg/dL (7-18)
--- NOTE | 2017-05-26 07:00 | NUR ---
PT REC'D FROM ANNY HUTCHISON. RESTING IN BED WATCHING TV. AAOX4. RATING CURRENT PAIN IN BACK, CHRONIC BACK PAIN, 01/17. WILL REASSESS. REGULAR HEART RATE AND RHYTHM. TELEMETRY IN PLACE. BILAT EXPIRATORY WHEEZES TO UPPER LOBES. BOWEL SOUNDS ACTIVE X4 QUADS. PIV TO L HAND FREE OF REDNESS AND SWELLING. BED LOW, CALL LIGHT IN REACH, DENIES NEEDS. CPOC.
--- NOTE | 2017-05-26 09:05 | NUR ---
MORNING MEDS PASSED AT THIS TIME. CURRENT FSBS 430. JORI WAYNE, AWARE. ON HIGH RESISTENCE SS. 28 UNITS OF INSULIN ADMINISTERED. BED LOW, CALL LIGHT IN REACH, DENIES NEEDS. CPOC.
[2017-05-26 09:06] VITALS: BP 121/67
--- NOTE | 2017-05-26 11:45 | NUR ---
CURRENT FSBS 369. 24 UNITS OF INSULIN ADMINISTERED PER SS. BED LOW, CALL LIGHT IN REACH, DENIES NEEDS. CPOC.
[2017-05-26 12:27] VITALS: BP 127/72
--- NOTE | 2017-05-26 14:23 | NUR ---
RESTING QUIETLY IN BED ON RIGHT SIDE WITH EYES CLOSED. RESP EVEN,NONLABORED.
--- NOTE | 2017-05-26 15:27 | NUR ---
NUTRITION F/U PT TOLERATING ADA DIET, 100% INTAKE RECENT MEALS. WILL CONTINUE TO PROVIDE DIET, MONITOR PO INTAKE. RD FOLLOWING
--- NOTE | 2017-05-26 15:30 | NUR ---
MEDS PASSED PER MAR. CURRENT FSBS 261. 16 UNITS OF INSULIN ADMINISTERED PER MAR. BED LOW, CALL LIGHT IN REACH, DENIES NEEDS. CPOC.
[2017-05-26 16:14] VITALS: BP 113/66
[2017-05-26 20:00] VITALS: BP 117/67
--- NOTE | 2017-05-26 20:45 | NUR ---
PATIENT RESTING IN BED AND DENIES NEEDS AT THIS TIME. ADMINISTERED MEDS PER ORDERS. COMPLETED ASSESSMENT. BED IN LOWEST POSITION AND CALL LIGHT WITHIN REACH. ENCOURAGED THE PATIENT TO CALL IF HE HAS NEEDS.
--- NOTE | 2017-05-27 01:01 | NUR ---
JOHN RAYMUNDO IN REGARDS TO PATIENT'S BLOOD GLUCOSE 414
--- NOTE | 2017-05-27 01:03 | NUR ---
NOTIFIED BREANNE OF THE PATIENT'S BLOOD SUGAR, BREANNE INSTRUCTED ME TO GO BY THE SLIDING SCALE
[2017-05-27 05:46] LABS: BASOPHILS 0.1 % (0-2); EOSINOPHILS 0.2 % (0-7); HEMATOCRIT 43.6 % (42.0-54.0); HEMOGLOBIN 14.8 g/dL (13.5-17.5); IMMATURE GRANULOCYTES 2.4 % (0-5); MCH 29.8 pg (26.0-34.0); MCHC 33.9 g/dL (31.0-37.0); MCV 87.9 fL (80.0-100.0); MEAN PLATELET VOLUME 12.1 fL (7.4-10.4); MONOCYTES 7.8 % (2-11); NEUTROPHILS 81.5 % (40-80); PLATELET COUNT 166 10x3/uL (130-400); RBC 4.96 10x6/uL (4.20-6.10); RDW 13.7 % (11.5-14.5); WBC 13.1 10x3/uL (4.8-10.8)
[2017-05-27 05:49] LABS: ALBUMIN 2.8 g/dL (3.4-5.0); ALKALINE PHOSPHATASE 57 U/L (46-116); ALT (SGPT) 45 U/L (10-68); CALC OSMOLALITY 290 mosm/kg (275-300); CALCIUM 8.9 mg/dL (8.5-10.1); CARBON DIOXIDE 28.6 mmol/L (21.0-32.0); CHLORIDE - SERUM 102 mmol/L (98-107); CREATININE - SERUM 0.7 mg/dL (0.6-1.3); GLUCOSE 275 mg/dL (74-106); POTASSIUM - SERUM 4.3 mmol/L (3.5-5.1); PROTEIN - SERUM 5.3 g/dL (6.4-8.2); SODIUM 138 mmol/L (136-145); UREA NITROGEN 27 mg/dL (7-18); eGFR NON AFRICAN AMERICAN > 90 mL/min (90-120)
--- NOTE | 2017-05-27 07:05 | NUR ---
RECEIVED REPORT, ASSUMED CARE OF PT. RESTING, EASILY AROUSED. R HAND IV SALINE LOCKED, DRSG C/D/I. NO NEEDS VOICED AT THIS TIME. BED IN LOWEST POSITION, SIDE RAILS UP X 2, CALL LIGHT WITHIN REACH.
[2017-05-27 08:43] VITALS: BP 98/77
[2017-05-27] MEDS ORDERED: MUCINEX DM ER1 EAC1 PO (10:31)
[2017-05-27] MEDS ORDERED: SINGULAIR10 MG PO (10:31)
[2017-05-27] MEDS ORDERED: PULMICORT0.5 MG/21 UPD (10:31)
[2017-05-27] MEDS ORDERED: BROVANA15 MCG/2 M INH (10:31)
[2017-05-27] MEDS ORDERED: BENZONATATE200 MG PO (10:31)
[2017-05-27] MEDS ORDERED: FLORAJEN3 CAPS460 MG PO (10:32)
[2017-05-27] MEDS ORDERED: DALIRESP500 MCG PO (10:32)
[2017-05-27] MEDS ORDERED: LANTUS INSULIN10 ML SC (10:32)
[2017-05-27] MEDS ORDERED: VIBRAMYCIN 100100 MG PO (10:33)
[2017-05-27] MEDS ORDERED: OMNICEF300 MG PO (10:33)
[2017-05-27] MEDS ORDERED: PREDNISONE10 MG PO (10:33)
--- NOTE | 2017-05-27 10:47 | NUR ---
CM REASSESSMENT NOTE: PATIENT IS DISCHARGING HOME TODAY / REFUSED HOME HEALTH OR ANY OTHER NEEDS FOR DISCHARGE/ STATED HE WAS DRIVING HIMSELF HOME / NURSE WAS NOTIFIED
--- NOTE | 2017-05-27 11:59 | NUR ---
DISCHARGE INSTRUCTIONS GIVEN TO PT ORDERED, VERBALIZED UNDERSTANDING AND SIGNED. ALL QUESTIONS ANSWERED. R HAND IV D/C'S, CATHETER INTACT, BLEED CONTROL, BANDAGE APPLIED. LANTUS PEN X 3 SENT WITH PT ORDERED. PERSONAL BELONGINGS WITH PT, TRANSFERRED TO VEHICLE VIA WHEELCHAIR.
== END 2017-05-27 12:27 | disposition home or self-care (01) | DRG 190 ==
LOC: D.ER 00:12 → D.MS 02:00
PROVIDERS: Family Medicine; Internal Medicine Pulmonary Disease; ADMIT Family Medicine
DX: J44.1 Chronic obstructive pulmonary disease with (acute) exacerbation (principal); J96.22 Acute and chronic respiratory failure with hypercapnia; J96.21 Acute and chronic respiratory failure with hypoxia; E87.2 Acidosis; E11.65 Type 2 diabetes mellitus with hyperglycemia; I10 Essential (primary) hypertension; Z79.4 Long term (current) use of insulin; Z99.81 Dependence on supplemental oxygen; I25.10 Atherosclerotic heart disease of native coronary artery without angina pectoris

== ENCOUNTER 2018-02-01 02:35 | Inpatient (IN) | payer MEDICAID ==
[2018-02-01] VITALS (10 sets, daily range): BP systolic 90–124; BP diastolic 53–80; BMI 32.3
[~2018-02-01] VITALS: Ht 182.9 cm; Wt 107.3 kg
--- NOTE | ~2018-02-01 | EC ---
PATIENT:FABI CONWAY DATE OF SERVICE: 02/01/18 SEX: M MEDICAL RECORD: [id number] DATE OF : [birth year] LOCATION:D.M2 D.212 AGE OF PATIENT: 63 ADMISSION DATE: 02/01/18 REFERRING PHYSICIAN: INTERPRETING PHYSICIAN: RONI MCKEON MD ECHOCARDIOGRAM REPORT ECHO CHARGES 4 ECHO COMPLETE Date: 02/02 CLINICAL DIAGNOSIS: CHF ECHOCARDIOGRAPHIC MEASUREMENTS (adult normal given) AC root (d.<3.7cm) 3.2 cm LV Septum d (<1.2 cm> 1.5 cm Valve Excursion 1.5 cm LV Septum (systole) 2.1 cm Left Atria (s.<4.0cm> 2.8 cm LVPW d(<1.2cm) 1.7 cm RV (d.<2.3cm) 3.8 cm LVPW (sytole) 1.8 cm LV diastole(<5.6CM) 4.8 cm MV E-F(>70mm/sec) cm LV systole 3.8 cm LVOT Diameter 1.8 cm MV exc.(>10mm) 1.5 cm Est.ejection fraction (50-75%) % DOPPLER: LVIT cm/sec A 73.0 cm/sec E 83.0 cm/sec LA cm/sec RVSP 24 mmHg LVOT 125 cm/sec AOP1/2T m/s Asc. Ao 1 cm/sec RVOT 138 cm/sec RA cm/sec PA cm/sec AV Gradient Peak 7.60 mmHg AV Mean 3.76 mmHg AV Area 2.3 cm MV Gradient Peak 4.30 mmHg MV Mean 1.74 mmHg MV Area cm COMMENTS: [employer] Laboratory Supervisor: Karis VUONG Skin Carver: 1 Dr. Mckeon TAPE# PACS Pericardial Effusion N DATE OF SERVICE: 02/02/2018 DATE OF SERVICE: 02/02/2018 FINDINGS: 1. Left ventricular chamber size is within normal limits. Left ventricular systolic function is normal. Overall ejection fraction estimated at 55%. 2. Left atrium, right atrium and right ventricular chamber sizes are within normal limits. 3. Valvular structures have normal structure and motion. ECHOCARDIOGRAM REPORT [id number] FABI CONWAY 4. Doppler interrogation reveals trace tricuspid regurgitation. No other valvular insufficiency or stenosis. Pulmonary systolic pressure is estimated at 24 mmHg. 5. No evidence of pericardial effusion or left ventricular thrombus. TRANSINT:[id number] Voice Confirmation ID: [id number] DOCUMENT ID: [id number] RONI MCKEON MD at 1207 CC: [id number] DICTATION DATE: 02/02/18 1030 ROOF BOLTER: 02/02/18 1252 ADM IN [facility] [address] [place] [address]
--- NOTE | ~2018-02-01 | CN ---
PATIENT NAME:FABI VILLA MEDICAL RECORD: [id number] : 53 LOCATION:[facility].2122 ADMIT DATE: 02/01/18 ACCOUNT: [id number] CONSULTING PHYSICIAN: NABEEL NOLASCO MD REFERRING PHYSICIAN: DEVIN CARDONA MD DATE OF CONSULTATION: 02/01/2018 Pulmonary Consultation CONSULT REQUESTING PHYSICIAN: Toni Sultana MD REASON FOR CONSULTATION: Acute exacerbation of chronic obstructive pulmonary disease and acute hypoxic respiratory failure. HISTORY OF PRESENT ILLNESS: Mr. Villa is a 63-year-old gentleman who has a history of severe COPD, who came into the ER with worsening shortness of breath and also orthopnea and PND. He has a generalized swelling. He was coughing yellow color sputum production. He was also having fever. The patient was also in niyqe-gu-ejvztee hypoxic respiratory failure. The patient was put on BiPAP. He is feeling a little bit better now. REVIEW OF SYSTEMS: As in history of present illness. PAST MEDICAL HISTORY: 1. Chronic hypoxic respiratory failure. 2. Chronic obstructive pulmonary disease. 3. Diabetes mellitus. 4. Coronary artery disease. PAST SURGICAL HISTORY: He has a cardiac catheterization and stent placement. ALLERGIES: HE IS ALLERGIC TO TRAMADOL. MEDICATIONS: ProNerve was reviewed. PERSONAL AND SOCIAL HISTORY: The patient is an ex-smoker. He is nondrinker. FAMILY HISTORY: Significant for his parent has cancer. PHYSICAL EXAMINATION: GENERAL: Now, the patient is lying comfortably. He is not in acute distress. He is wearing his BiPAP machine. VITAL SIGNS: The blood pressure is 101/65, pulse is 98, respirations 20, temperature 98.4, SpO2 97% on BiPAP. HEENT: Conjunctivae are pink. Sclerae are not icteric. NECK: Supple. Elevated JVD. CHEST: There are bilateral crackles. No wheezing. HEART: Rhythm regular, normal sound, no murmur. ABDOMEN: Soft, bowel sounds present. No hepatosplenomegaly. RECTAL: Deferred. EXTREMITIES: No cyanosis, no clubbing. There is 2+ pedal edema. SKIN: Warm, normal turgor. CENTRAL NERVOUS SYSTEM: The patient is awake and alert. There is no obvious cranial nerve abnormality. CONSULT REPORT [id number] FABI VILLA IMPRESSION: 1. Ezoca-qe-dsyauzy hypoxic respiratory failure. 2. Acute exacerbation of chronic obstructive pulmonary disease. 3. Acute tracheobronchitis. 4. Congestive heart failure, possible chronic diastolic dysfunction. 5. Leukocytosis. 6. Diabetes mellitus type 2. 7. Coronary artery disease. RECOMMENDATION: 1. Continue the BiPAP. 2. Albuterol and ipratropium nebulizer, Brovana and budesonide nebulizer, and methylprednisolone IV. 3. Empiric antibiotic. 4. Diuresis. 5. Cardiac workup per cardiology. 6. Follow up labs and chest radiograph. The patient's history of severe COPD, possible there is underlying cor pulmonale. There is no pulmonary thromboembolism with negative D-dimer. Follow up labs and chest radiograph. Dr. Sultana, thank you for involving me in the care of Mr. Villa. TRANSINT:[id number] Voice Confirmation ID: [id number] DOCUMENT ID: [id number] NABEEL NOLASCO MD at 1218 CC: [id number] DICTATION DATE: 02/01/18 1646 VP CUSTOMER SERVICE: 02/01/18 1904 ADM IN [place] [id number] [place] [id number]
[~2018-02-01 02:35] MED LIST changes: +BENZONATATE200 MG PO; +BROVANA15 MCG/2 M INH; +DALIRESP500 MCG PO; +FLORAJEN3 CAPS460 MG PO; +HYDROCODONE-IB1 EAC3 PO; +MUCINEX DM ER1 EAC1 PO; +NEURONTIN600 MG PO; +OMNICEF300 MG PO; +PULMICORT0.5 MG/21 UPD; +SINGULAIR10 MG PO; +VIBRAMYCIN 100100 MG PO
[2018-02-01 03:14] LABS: HEMATOCRIT 39.6 % (42.0-54.0); HEMOGLOBIN 13.7 g/dL (13.5-17.5); IMMATURE GRANULOCYTES 0.5 % (0-5); MCH 32.4 pg (26.0-34.0); MCHC 34.6 g/dL (31.0-37.0); MCV 93.6 fL (80.0-100.0); MEAN PLATELET VOLUME 11.3 fL (7.4-10.4); PLATELET COUNT 159 10x3/uL (130-400); RBC 4.23 10x6/uL (4.20-6.10); RDW 14.2 % (11.5-14.5); WBC 25.9 10x3/uL (4.8-10.8)
[2018-02-01 03:22] LABS: ALKALINE PHOSPHATASE 80 U/L (46-116); ALT (SGPT) 41 U/L (10-68); CALC OSMOLALITY 287 mosm/kg (275-300); CALCIUM 8.8 mg/dL (8.5-10.1); CARBON DIOXIDE 35.4 mmol/L (21.0-32.0); CHLORIDE - SERUM 95 mmol/L (98-107); CREATININE - SERUM 1.2 mg/dL (0.6-1.3); GLUCOSE 308 mg/dL (74-106); POTASSIUM - SERUM 4.4 mmol/L (3.5-5.1); PROTEIN - SERUM 6.7 g/dL (6.4-8.2); SODIUM 135 mmol/L (136-145); UREA NITROGEN 28 mg/dL (7-18); eGFR NON AFRICAN AMERICAN 65 mL/min (90-120)
[2018-02-01 03:28] LABS: CREATINE KINASE 44 UL (21-232); PRO BNP 437 pg/mL (0-125); TROPONIN-I < 0.017 ng/mL (0.000-0.060)
[2018-02-01 03:52] LABS: EOSINOPHILS 1 % (0-7); LYMPHOCYTES 4 % (15-50); MONOCYTES 4 % (2-11); NEUTROPHILS 87 % (40-80); PLATELET ESTIMATE NORMAL
[2018-02-01] MEDS ORDERED: METOLAZONE5 MG PO (13:45)
[2018-02-01] MEDS ORDERED: PREDNISONE20 MG PO (13:47)
[2018-02-02 01:09] VITALS: BP 89/59
[2018-02-02 06:05] VITALS: BP 89/57
[2018-02-02 06:29] LABS: ALBUMIN 2.5 g/dL (3.4-5.0); BILIRUBIN - TOTAL 0.62 mg/dL (0.2-1.3); CALCIUM 8.4 mg/dL (8.5-10.1); CARBON DIOXIDE 35.6 mmol/L (21.0-32.0); CREATININE - SERUM 1.5 mg/dL (0.6-1.3); PROTEIN - SERUM 6.1 g/dL (6.4-8.2)
[2018-02-02 06:31] LABS: POTASSIUM - SERUM 3.6 mmol/L (3.5-5.1)
[2018-02-02 07:03] LABS: BASOPHILS 0 % (0-2); EOSINOPHILS 0 % (0-7); HEMATOCRIT 35.2 % (42.0-54.0); HEMOGLOBIN 12.3 g/dL (13.5-17.5); IMMATURE GRANULOCYTES 0.4 % (0-5); MCH 31.9 pg (26.0-34.0); MCHC 34.9 g/dL (31.0-37.0); MCV 91.4 fL (80.0-100.0); MEAN PLATELET VOLUME 11.6 fL (7.4-10.4); MONOCYTES 2.2 % (2-11); NEUTROPHILS 93.4 % (40-80); PLATELET COUNT 169 10x3/uL (130-400); RBC 3.85 10x6/uL (4.20-6.10); WBC 22.9 10x3/uL (4.8-10.8)
[2018-02-02 17:33] VITALS: BP 111/69
[2018-02-02 20:43] VITALS: BP 104/66
[2018-02-03] VITALS (7 sets, daily range): BP systolic 100–138; BP diastolic 63–99
[2018-02-03 04:42] LABS: ALBUMIN 2.5 g/dL (3.4-5.0); BILIRUBIN - TOTAL 0.4 mg/dL (0.2-1.3); CALCIUM 8.3 mg/dL (8.5-10.1); CARBON DIOXIDE 32.7 mmol/L (21.0-32.0); POTASSIUM - SERUM 3.7 mmol/L (3.5-5.1); PROTEIN - SERUM 6.3 g/dL (6.4-8.2)
[2018-02-03 04:55] LABS: CREATININE - SERUM 1.9 mg/dL (0.6-1.3)
[2018-02-03 05:04] LABS: BASOPHILS 0.1 % (0-2); EOSINOPHILS 0 % (0-7); HEMATOCRIT 35.3 % (42.0-54.0); HEMOGLOBIN 12.7 g/dL (13.5-17.5); IMMATURE GRANULOCYTES 0.4 % (0-5); LYMPHOCYTES 2.1 % (15-50); MCH 32.6 pg (26.0-34.0); MCV 90.5 fL (80.0-100.0); MEAN PLATELET VOLUME 11.6 fL (7.4-10.4); MONOCYTES 3.9 % (2-11); NEUTROPHILS 93.5 % (40-80); PLATELET COUNT 181 10x3/uL (130-400); RDW 13.4 % (11.5-14.5); WBC 18.9 10x3/uL (4.8-10.8)
[2018-02-04] VITALS (7 sets, daily range): BP systolic 105–133; BP diastolic 47–85
[2018-02-04 06:18] LABS: BASOPHILS 0.1 % (0-2); EOSINOPHILS 0 % (0-7); HEMATOCRIT 38.6 % (42.0-54.0); HEMOGLOBIN 13.5 g/dL (13.5-17.5); IMMATURE GRANULOCYTES 0.6 % (0-5); LYMPHOCYTES 3.2 % (15-50); MCH 31.8 pg (26.0-34.0); MCV 90.8 fL (80.0-100.0); MEAN PLATELET VOLUME 11.3 fL (7.4-10.4); NEUTROPHILS 91.1 % (40-80); PLATELET COUNT 186 10x3/uL (130-400); RBC 4.25 10x6/uL (4.20-6.10); RDW 13.6 % (11.5-14.5); WBC 18.5 10x3/uL (4.8-10.8)
[2018-02-04 07:02] LABS: ALBUMIN 2.6 g/dL (3.4-5.0); ANION GAP 11.2 mmol/L (8-16); BILIRUBIN - TOTAL 0.35 mg/dL (0.2-1.3); CALCIUM 8.4 mg/dL (8.5-10.1); CARBON DIOXIDE 35.7 mmol/L (21.0-32.0); CREATININE - SERUM 1.6 mg/dL (0.6-1.3); POTASSIUM - SERUM 3.9 mmol/L (3.5-5.1); PROTEIN - SERUM 6.3 g/dL (6.4-8.2)
[2018-02-05 05:14] VITALS: BP 96/54
[2018-02-05 06:48] LABS: BASOPHILS 0.1 % (0-2); EOSINOPHILS 0 % (0-7); HEMATOCRIT 39.1 % (42.0-54.0); HEMOGLOBIN 13.8 g/dL (13.5-17.5); IMMATURE GRANULOCYTES 1.7 % (0-5); LYMPHOCYTES 3.8 % (15-50); MCHC 35.3 g/dL (31.0-37.0); MCV 90.7 fL (80.0-100.0); MEAN PLATELET VOLUME 11.4 fL (7.4-10.4); MONOCYTES 4.9 % (2-11); NEUTROPHILS 89.5 % (40-80); PLATELET COUNT 178 10x3/uL (130-400); RBC 4.31 10x6/uL (4.20-6.10); RDW 13.3 % (11.5-14.5); WBC 20.5 10x3/uL (4.8-10.8)
[2018-02-05 06:58] LABS: ALBUMIN 2.8 g/dL (3.4-5.0); ANION GAP 7.6 mmol/L (8-16); BILIRUBIN - TOTAL 0.34 mg/dL (0.2-1.3); CALCIUM 8.5 mg/dL (8.5-10.1); CARBON DIOXIDE 38.7 mmol/L (21.0-32.0); CREATININE - SERUM 1.7 mg/dL (0.6-1.3); POTASSIUM - SERUM 4.3 mmol/L (3.5-5.1); PROTEIN - SERUM 6.5 g/dL (6.4-8.2)
[2018-02-05 08:01] VITALS: BP 125/67
[2018-02-05 11:32] VITALS: BP 101/69
[2018-02-05 14:17] VITALS: Ht 182.9 cm; Wt 107.3 kg
[2018-02-05 15:38] VITALS: BP 98/55
[2018-02-05 20:33] VITALS: BP 91/52
[2018-02-06 00:46] VITALS: BP 104/74
[2018-02-06 05:24] LABS: BASOPHILS 0 % (0-2); EOSINOPHILS 0 % (0-7); HEMATOCRIT 37.9 % (42.0-54.0); HEMOGLOBIN 13.4 g/dL (13.5-17.5); IMMATURE GRANULOCYTES 3.8 % (0-5); MCH 31.9 pg (26.0-34.0); MCHC 35.4 g/dL (31.0-37.0); MCV 90.2 fL (80.0-100.0); MEAN PLATELET VOLUME 11.1 fL (7.4-10.4); MONOCYTES 4.5 % (2-11); NEUTROPHILS 87.7 % (40-80); PLATELET COUNT 206 10x3/uL (130-400); RDW 13.4 % (11.5-14.5); WBC 22.7 10x3/uL (4.8-10.8)
[2018-02-06 05:39] LABS: ALBUMIN 2.8 g/dL (3.4-5.0); ANION GAP 10.9 mmol/L (8-16); BILIRUBIN - TOTAL 0.51 mg/dL (0.2-1.3); CARBON DIOXIDE 37.9 mmol/L (21.0-32.0); CREATININE - SERUM 1.9 mg/dL (0.6-1.3); POTASSIUM - SERUM 4.8 mmol/L (3.5-5.1); PROTEIN - SERUM 6.4 g/dL (6.4-8.2)
[2018-02-06 05:43] VITALS: BP 91/58
[2018-02-06 08:25] VITALS: BP 103/63
[2018-02-06 11:02] VITALS: BP 109/68
[2018-02-06 16:13] VITALS: BP 108/66
[2018-02-06 20:00] VITALS: BP 92/62
[2018-02-07] VITALS: BP 102/70
[2018-02-07 04:00] VITALS: BP 99/68
[2018-02-07 06:46] LABS: BASOPHILS 0.3 % (0-2); EOSINOPHILS 0.5 % (0-7); HEMATOCRIT 38.9 % (42.0-54.0); HEMOGLOBIN 13.7 g/dL (13.5-17.5); IMMATURE GRANULOCYTES 5.4 % (0-5); LYMPHOCYTES 9.2 % (15-50); MCH 31.8 pg (26.0-34.0); MCHC 35.2 g/dL (31.0-37.0); MCV 90.3 fL (80.0-100.0); MEAN PLATELET VOLUME 10.7 fL (7.4-10.4); MONOCYTES 7.4 % (2-11); NEUTROPHILS 77.2 % (40-80); PLATELET COUNT 176 10x3/uL (130-400); RBC 4.31 10x6/uL (4.20-6.10); RDW 13.4 % (11.5-14.5); WBC 17.6 10x3/uL (4.8-10.8)
[2018-02-07 07:17] LABS: ALBUMIN 2.8 g/dL (3.4-5.0); BILIRUBIN - TOTAL 0.49 mg/dL (0.2-1.3); CALCIUM 8.8 mg/dL (8.5-10.1); CARBON DIOXIDE 39.8 mmol/L (21.0-32.0); PROTEIN - SERUM 6.3 g/dL (6.4-8.2)
[2018-02-07 07:18] LABS: ANION GAP 7.9 mmol/L (8-16); CREATININE - SERUM 1.3 mg/dL (0.6-1.3); POTASSIUM - SERUM 3.7 mmol/L (3.5-5.1)
[2018-02-07 08:00] VITALS: BP 93/54
[2018-02-07 08:45] VITALS: BP 113/70
[2018-02-07 11:12] VITALS: BP 122/76
[2018-02-08] VITALS: BP 93/55
[2018-02-08 04:00] VITALS: BP 90/59
[2018-02-08 05:31] LABS: BASOPHILS 0.2 % (0-2); EOSINOPHILS 0.5 % (0-7); HEMATOCRIT 36.2 % (42.0-54.0); HEMOGLOBIN 12.6 g/dL (13.5-17.5); IMMATURE GRANULOCYTES 7.9 % (0-5); LYMPHOCYTES 10.4 % (15-50); MCH 31.5 pg (26.0-34.0); MCHC 34.8 g/dL (31.0-37.0); MCV 90.5 fL (80.0-100.0); MEAN PLATELET VOLUME 10.4 fL (7.4-10.4); PLATELET COUNT 183 10x3/uL (130-400); RDW 13.6 % (11.5-14.5); WBC 18.2 10x3/uL (4.8-10.8)
[2018-02-08 05:55] LABS: ALBUMIN 2.4 g/dL (3.4-5.0); ANION GAP 6.5 mmol/L (8-16); BILIRUBIN - TOTAL 0.36 mg/dL (0.2-1.3); CALCIUM 8.4 mg/dL (8.5-10.1); CREATININE - SERUM 1.4 mg/dL (0.6-1.3); POTASSIUM - SERUM 3.7 mmol/L (3.5-5.1); PROTEIN - SERUM 5.7 g/dL (6.4-8.2)
[2018-02-08 05:57] LABS: CARBON DIOXIDE 40.2 mmol/L (21.0-32.0)
[2018-02-08 08:10] VITALS: BP 102/64
[2018-02-08 11:31] VITALS: BP 115/75
[2018-02-08 15:57] VITALS: BP 90/55
[2018-02-08 20:00] VITALS: BP 102/69
[2018-02-09 04:00] VITALS: BP 93/54
[2018-02-09 05:47] LABS: BASOPHILS 0.1 % (0-2); EOSINOPHILS 0.5 % (0-7); HEMATOCRIT 37.9 % (42.0-54.0); HEMOGLOBIN 13.3 g/dL (13.5-17.5); IMMATURE GRANULOCYTES 3.3 % (0-5); LYMPHOCYTES 8.7 % (15-50); MCH 31.8 pg (26.0-34.0); MCHC 35.1 g/dL (31.0-37.0); MCV 90.7 fL (80.0-100.0); MEAN PLATELET VOLUME 10.5 fL (7.4-10.4); MONOCYTES 5.5 % (2-11); NEUTROPHILS 81.9 % (40-80); PLATELET COUNT 177 10x3/uL (130-400); RBC 4.18 10x6/uL (4.20-6.10); RDW 13.6 % (11.5-14.5); WBC 21.9 10x3/uL (4.8-10.8)
[2018-02-09 06:08] LABS: ALBUMIN 2.5 g/dL (3.4-5.0); BILIRUBIN - TOTAL 0.35 mg/dL (0.2-1.3); CALCIUM 8.4 mg/dL (8.5-10.1); CREATININE - SERUM 1.4 mg/dL (0.6-1.3); PROTEIN - SERUM 5.8 g/dL (6.4-8.2)
[2018-02-09 06:17] LABS: ANION GAP 7.1 mmol/L (8-16); POTASSIUM - SERUM 3.1 mmol/L (3.5-5.1)
[2018-02-09 08:32] VITALS: BP 90/52
[2018-02-09 16:54] VITALS: BP 96/60
[2018-02-09 20:45] VITALS: BP 123/85
[2018-02-10 01:02] VITALS: BP 128/71
[2018-02-10 03:56] LABS: APPEARANCE CLEAR (CLEAR); BILIRUBIN NEGATIVE (NEGATIVE); COLOR YELLOW (YELLOW); GLUCOSE NEGATIVE (NEGATIVE); KETONE NEGATIVE (NEGATIVE); NITRITE NEGATIVE (NEGATIVE); PROTEIN NEGATIVE (NEGATIVE); SPECIFIC GRAVITY 1.015 (1.005-1.020); UROBILINOGEN NORMAL (NORMAL)
[2018-02-10 06:12] VITALS: BP 95/51
[2018-02-10 06:15] LABS: ALBUMIN 2.5 g/dL (3.4-5.0); ANION GAP 6.4 mmol/L (8-16); BILIRUBIN - TOTAL 0.38 mg/dL (0.2-1.3); CALCIUM 8.5 mg/dL (8.5-10.1); CREATININE - SERUM 1.5 mg/dL (0.6-1.3); POTASSIUM - SERUM 3.5 mmol/L (3.5-5.1); PROTEIN - SERUM 5.9 g/dL (6.4-8.2)
[2018-02-10 06:26] LABS: CARBON DIOXIDE 42.1 mmol/L (21.0-32.0)
[2018-02-10 06:32] LABS: BASOPHILS 0.1 % (0-2); EOSINOPHILS 0.1 % (0-7); HEMOGLOBIN 12.6 g/dL (13.5-17.5); IMMATURE GRANULOCYTES 1.9 % (0-5); LYMPHOCYTES 4.5 % (15-50); MCH 31.8 pg (26.0-34.0); MCV 90.9 fL (80.0-100.0); MEAN PLATELET VOLUME 10.9 fL (7.4-10.4); MONOCYTES 3.1 % (2-11); NEUTROPHILS 90.3 % (40-80); PLATELET COUNT 174 10x3/uL (130-400); RBC 3.96 10x6/uL (4.20-6.10); RDW 13.5 % (11.5-14.5); WBC 22.4 10x3/uL (4.8-10.8)
[2018-02-10 08:21] VITALS: BP 91/58
[2018-02-10 11:52] VITALS: BP 110/66
[2018-02-10 15:47] VITALS: BP 97/61
[2018-02-10 20:35] VITALS: BP 108/66
[2018-02-11 01:41] VITALS: BP 108/60
[2018-02-11 04:00] VITALS: BP 91/47
[2018-02-11 06:38] LABS: BASOPHILS 0.1 % (0-2); EOSINOPHILS 0.1 % (0-7); HEMATOCRIT 34.2 % (42.0-54.0); IMMATURE GRANULOCYTES 1.4 % (0-5); LYMPHOCYTES 5.8 % (15-50); MCH 31.7 pg (26.0-34.0); MCHC 35.1 g/dL (31.0-37.0); MCV 90.2 fL (80.0-100.0); MEAN PLATELET VOLUME 10.2 fL (7.4-10.4); NEUTROPHILS 87.6 % (40-80); PLATELET COUNT 165 10x3/uL (130-400); RBC 3.79 10x6/uL (4.20-6.10); RDW 13.5 % (11.5-14.5); WBC 23.9 10x3/uL (4.8-10.8)
[2018-02-11 06:57] LABS: ALBUMIN 2.4 g/dL (3.4-5.0); ANION GAP 4.1 mmol/L (8-16); BILIRUBIN - TOTAL 0.36 mg/dL (0.2-1.3); CALCIUM 8.5 mg/dL (8.5-10.1); CREATININE - SERUM 1.5 mg/dL (0.6-1.3); POTASSIUM - SERUM 3.7 mmol/L (3.5-5.1); PROTEIN - SERUM 5.5 g/dL (6.4-8.2)
[2018-02-11 07:21] LABS: CARBON DIOXIDE 44.6 mmol/L (21.0-32.0)
[2018-02-11 09:22] VITALS: BP 96/37
[2018-02-11 15:43] VITALS: BP 93/52
[2018-02-11 21:58] VITALS: BP 91/42
[2018-02-12] VITALS (7 sets, daily range): BP systolic 91–118; BP diastolic 51–79
[2018-02-12 05:00] LABS: BASOPHILS 0.1 % (0-2); EOSINOPHILS 0.4 % (0-7); HEMATOCRIT 34.6 % (42.0-54.0); HEMOGLOBIN 12.1 g/dL (13.5-17.5); IMMATURE GRANULOCYTES 1.4 % (0-5); LYMPHOCYTES 8.5 % (15-50); MCH 31.5 pg (26.0-34.0); MCV 90.1 fL (80.0-100.0); MEAN PLATELET VOLUME 9.9 fL (7.4-10.4); NEUTROPHILS 82.6 % (40-80); PLATELET COUNT 161 10x3/uL (130-400); RBC 3.84 10x6/uL (4.20-6.10); RDW 13.3 % (11.5-14.5)
[2018-02-12 05:40] LABS: ALBUMIN 2.4 g/dL (3.4-5.0); ANION GAP 4.2 mmol/L (8-16); BILIRUBIN - TOTAL 0.45 mg/dL (0.2-1.3); CALCIUM 8.2 mg/dL (8.5-10.1); POTASSIUM - SERUM 3.6 mmol/L (3.5-5.1); PROTEIN - SERUM 5.5 g/dL (6.4-8.2)
[2018-02-12 05:52] LABS: CREATININE - SERUM 1.1 mg/dL (0.6-1.3)
[2018-02-12 05:53] LABS: CARBON DIOXIDE 42.4 mmol/L (21.0-32.0)
[2018-02-12] MEDS ORDERED: LANTUS INSULIN10 ML SC (09:01)
[2018-02-13 04:00] VITALS: BP 115/75
[2018-02-13 07:45] VITALS: BP 108/63
[2018-02-13 08:16] LABS: BASOPHILS 0.1 % (0-2); EOSINOPHILS 0 % (0-7); HEMATOCRIT 34.1 % (42.0-54.0); IMMATURE GRANULOCYTES 1.1 % (0-5); LYMPHOCYTES 3.3 % (15-50); MCH 32.2 pg (26.0-34.0); MCHC 35.2 g/dL (31.0-37.0); MCV 91.4 fL (80.0-100.0); MEAN PLATELET VOLUME 10.2 fL (7.4-10.4); MONOCYTES 5.7 % (2-11); NEUTROPHILS 89.8 % (40-80); PLATELET COUNT 163 10x3/uL (130-400); RBC 3.73 10x6/uL (4.20-6.10); RDW 13.5 % (11.5-14.5); WBC 25.5 10x3/uL (4.8-10.8)
[2018-02-13 08:33] LABS: ALBUMIN 2.3 g/dL (3.4-5.0); ALKALINE PHOSPHATASE 81 U/L (46-116); ALT (SGPT) 45 U/L (10-68); BILIRUBIN - TOTAL 1.19 mg/dL (0.2-1.3); CALCIUM 7.8 mg/dL (8.5-10.1); CARBON DIOXIDE 39.1 mmol/L (21.0-32.0); CHLORIDE - SERUM 89 mmol/L (98-107); MAGNESIUM - SERUM 1.8 mg/dL (1.8-2.4); POTASSIUM - SERUM 3.4 mmol/L (3.5-5.1); PROTEIN - SERUM 5.9 g/dL (6.4-8.2); SODIUM 134 mmol/L (136-145); eGFR NON AFRICAN AMERICAN 80 mL/min (90-120)
[2018-02-13 08:36] LABS: CALC OSMOLALITY 286 mosm/kg (275-300); GLUCOSE 275 mg/dL (74-106); UREA NITROGEN 38 mg/dL (7-18)
[2018-02-13 11:42] VITALS: BP 103/59
[2018-02-13 15:46] VITALS: BP 82/40
[2018-02-13 21:40] VITALS: BP 88/59
[2018-02-14 06:14] VITALS: BP 91/57
[2018-02-14 06:33] VITALS: BP 95/59
[2018-02-14 07:40] VITALS: BP 98/57
[2018-02-14 11:19] VITALS: BP 86/48
[2018-02-14 15:35] VITALS: BP 98/58
[2018-02-14 20:21] VITALS: BP 125/69
[2018-02-15 02:14] VITALS: BP 116/66
[2018-02-15 04:30] VITALS: BP 186/77
[2018-02-15 05:15] VITALS: BP 127/74
[2018-02-15 06:35] LABS: BASOPHILS 0.2 % (0-2); EOSINOPHILS 0.5 % (0-7); HEMATOCRIT 30.9 % (42.0-54.0); HEMOGLOBIN 10.5 g/dL (13.5-17.5); IMMATURE GRANULOCYTES 3.9 % (0-5); LYMPHOCYTES 11.2 % (15-50); MCH 31.2 pg (26.0-34.0); MCV 91.7 fL (80.0-100.0); NEUTROPHILS 78.2 % (40-80); PLATELET COUNT 181 10x3/uL (130-400); RBC 3.37 10x6/uL (4.20-6.10); RDW 13.4 % (11.5-14.5)
[2018-02-15 06:36] LABS: WBC 18.8 10x3/uL (4.8-10.8)
[2018-02-15 06:45] LABS: CALC OSMOLALITY 282 mosm/kg (275-300); CALCIUM 7.4 mg/dL (8.5-10.1); CARBON DIOXIDE 39.7 mmol/L (21.0-32.0); CHLORIDE - SERUM 92 mmol/L (98-107); SODIUM 135 mmol/L (136-145); UREA NITROGEN 42 mg/dL (7-18); eGFR NON AFRICAN AMERICAN 80 mL/min (90-120)
[2018-02-15 06:55] LABS: GLUCOSE 141 mg/dL (74-106)
[2018-02-15 08:34] VITALS: BP 120/76
[2018-02-15 16:34] VITALS: BP 108/65
[2018-02-16 00:02] VITALS: BP 109/74
[2018-02-16 04:36] LABS: BASOPHILS 0.1 % (0-2); EOSINOPHILS 0.3 % (0-7); HEMATOCRIT 28.5 % (42.0-54.0); HEMOGLOBIN 9.9 g/dL (13.5-17.5); IMMATURE GRANULOCYTES 5.9 % (0-5); LYMPHOCYTES 15.4 % (15-50); MCH 31.8 pg (26.0-34.0); MCHC 34.7 g/dL (31.0-37.0); MCV 91.6 fL (80.0-100.0); MEAN PLATELET VOLUME 9.6 fL (7.4-10.4); MONOCYTES 5.6 % (2-11); NEUTROPHILS 72.7 % (40-80); PLATELET COUNT 184 10x3/uL (130-400); RBC 3.11 10x6/uL (4.20-6.10); RDW 13.6 % (11.5-14.5); WBC 15.5 10x3/uL (4.8-10.8)
[2018-02-16 04:52] LABS: CARBON DIOXIDE 36.8 mmol/L (21.0-32.0); CHLORIDE - SERUM 95 mmol/L (98-107); CREATININE - SERUM 0.9 mg/dL (0.6-1.3); GLUCOSE 243 mg/dL (74-106); POTASSIUM - SERUM 3.5 mmol/L (3.5-5.1); SODIUM 135 mmol/L (136-145); eGFR NON AFRICAN AMERICAN 90 mL/min (90-120)
[2018-02-16 05:12] LABS: CALC OSMOLALITY 284 mosm/kg (275-300); CALCIUM 6.9 mg/dL (8.5-10.1); UREA NITROGEN 31 mg/dL (7-18)
[2018-02-16 06:02] VITALS: BP 98/71
[2018-02-16 08:47] VITALS: BP 123/74
[2018-02-16 12:38] VITALS: BP 120/83
[2018-02-16 16:27] VITALS: BP 102/65
[2018-02-16 22:07] VITALS: BP 92/62
[2018-02-17 01:57] VITALS: BP 115/62
[2018-02-17 05:30] VITALS: BP 106/65
[2018-02-17 05:46] LABS: BASOPHILS 0.3 % (0-2); EOSINOPHILS 1.3 % (0-7); HEMATOCRIT 30.4 % (42.0-54.0); HEMOGLOBIN 10.4 g/dL (13.5-17.5); IMMATURE GRANULOCYTES 9.4 % (0-5); LYMPHOCYTES 21.2 % (15-50); MCH 31.6 pg (26.0-34.0); MCHC 34.2 g/dL (31.0-37.0); MCV 92.4 fL (80.0-100.0); MEAN PLATELET VOLUME 9.8 fL (7.4-10.4); MONOCYTES 4.6 % (2-11); NEUTROPHILS 63.2 % (40-80); PLATELET COUNT 198 10x3/uL (130-400); RBC 3.29 10x6/uL (4.20-6.10); RDW 13.7 % (11.5-14.5); WBC 15.4 10x3/uL (4.8-10.8)
[2018-02-17 06:07] LABS: CALC OSMOLALITY 280 mosm/kg (275-300); CALCIUM 7.3 mg/dL (8.5-10.1); CARBON DIOXIDE 37.1 mmol/L (21.0-32.0); CHLORIDE - SERUM 98 mmol/L (98-107); CREATININE - SERUM 0.8 mg/dL (0.6-1.3); GLUCOSE 145 mg/dL (74-106); POTASSIUM - SERUM 3.8 mmol/L (3.5-5.1); SODIUM 137 mmol/L (136-145); eGFR NON AFRICAN AMERICAN > 90 mL/min (90-120)
[2018-02-17 06:08] LABS: UREA NITROGEN 23 mg/dL (7-18)
[2018-02-17 07:54] VITALS: BP 124/72
[2018-02-17 11:29] VITALS: BP 91/61
[2018-02-17] MEDS ORDERED: PREDNISONE10 MG PO (12:01)
== END 2018-02-17 16:04 | disposition home health service (06) | DRG 177 ==
LOC: D.ER 02:35 → D.EDHOLD 03:53 → D.M2 03:53 → D.SDCHOLD 02-04 11:21 → D.M2 02-17 16:04
PROVIDERS: Emergency Medicine; Family Medicine; Internal Medicine Nephrology; Internal Medicine Pulmonary Disease
PROC: 5A09557 Assistance with Respiratory Ventilation, Greater than 96 Consecutive Hours, Continuous Positive Airway Pressure (ICD-10-PCS; principal; 2018-02-01)
DX: J69.0 Pneumonitis due to inhalation of food and vomit (principal); J96.21 Acute and chronic respiratory failure with hypoxia; I50.33 Acute on chronic diastolic (congestive) heart failure; I13.0 Hypertensive heart and chronic kidney disease with heart failure and stage 1 through stage 4 chronic kidney disease, or unspecified chronic kidney disease; J44.1 Chronic obstructive pulmonary disease with (acute) exacerbation; J44.0 Chronic obstructive pulmonary disease with (acute) lower respiratory infection; N17.9 Acute kidney failure, unspecified; E87.1 Hypo-osmolality and hyponatremia; E87.2 Acidosis; J20.9 Acute bronchitis, unspecified; E11.65 Type 2 diabetes mellitus with hyperglycemia; Z79.4 Long term (current) use of insulin; I25.10 Atherosclerotic heart disease of native coronary artery without angina pectoris; E78.5 Hyperlipidemia, unspecified; N18.9 Chronic kidney disease, unspecified; E11.22 Type 2 diabetes mellitus with diabetic chronic kidney disease; D64.9 Anemia, unspecified; R53.81 Other malaise; Z87.891 Personal history of nicotine dependence